=== PATIENT | female | born 1935 | race Caucasian/White ===

== ENCOUNTER → 2016-04-12 16:33 | Outpatient (CLI) | payer MEDICARE, BC ==
[2014-08-11 07:15] VITALS: BMI 28.8
[~2016-04-12 16:33] MED LIST: ATIVAN0.5 MG PO; BAYER CHEWABLE81 MG PO; BENADRYL25 MG PO; BYSTOLIC20 MG PO; COZAAR100 MG PO; DULCOLAX10 MG/SUPP RC; HYDROCHLOROTHIA25 MG PO; HYZAAR 100-25 T1 TAB PO; K-DUR20 MEQ PO; LASIX20 MG PO; LOVENOX40 MG/0.4 SQ; METOPROLOL TAR100 MG PO; MIRALAX17 GM PO; NEXIUM40 MG PO; NORCO 10/325 TA1 TA1 PO; NORCO 5/325 TAB1 TA1 PO; NORVASC10 MG PO; PLAVIX75 MG PO; PROTONIX40 MG PO; VYTORIN 10-20 M1 TAB PO; ZETIA10 MG PO; ZOCOR20 MG PO; ZOFRAN4 MG PO
== END | disposition home or self-care (01) ==
LOC: D.MAMMO 03-27 08:00
DX: Z12.31 Encounter for screening mammogram for malignant neoplasm of breast (principal)

== ENCOUNTER → 2016-11-26 07:59 | Outpatient (CLI) | payer MEDICARE, BC ==
[2014-08-11 07:15] VITALS: BMI 28.8
[2016-11-26 08:19] LABS: BASOPHILS 0.7 % (0-2); EOSINOPHILS 5.3 % (0-7); HEMATOCRIT 41.7 % (36.0-48.0); HEMOGLOBIN 13.7 g/dL (12-16); LYMPHOCYTES 18.9 % (15-50); MCH 28.4 pg (26.0-34.0); MCHC 32.9 g/dL (31.0-37.0); MCV 86.3 fL (80.0-100.0); MEAN PLATELET VOLUME 9.7 fL (7.4-10.4); MONOCYTES 13.9 % (2-11); NEUTROPHILS 61.2 % (40-80); PLATELET COUNT 263 10x3/uL (130-400); RBC 4.83 10x6/uL (4.00-5.40); RDW 13.7 % (11.5-14.5); WBC 5.7 10x3/uL (4.8-10.8)
[2016-11-26 09:05] LABS: ANION GAP 12.6 mmol/L (8-16); CALCIUM 10.1 mg/dL (8.5-10.1); CARBON DIOXIDE 27.2 mmol/L (21.0-32.0); POTASSIUM - SERUM 3.8 mmol/L (3.5-5.1)
== END | disposition home or self-care (01) ==
LOC: D.LAB 07:59 → D.CT 08:30
PROVIDERS: Internal Medicine Gastroenterology
DX: R10.9 Unspecified abdominal pain (principal); K92.1 Melena; R19.7 Diarrhea, unspecified

== ENCOUNTER → 2017-02-04 10:19 | Outpatient (CLI) | payer MEDICARE, BC ==
[2014-08-11 07:15] VITALS: BMI 28.8
[2017-02-04 11:25] LABS: ALBUMIN 3.8 g/dL (3.4-5.0); BILIRUBIN - DIRECT 0.13 mg/dL (0.00-0.30); BILIRUBIN - INDIRECT 0.35 mg/dL (0.00-1.00); BILIRUBIN - TOTAL 0.48 mg/dL (0.2-1.3); PROTEIN - SERUM 7.4 g/dL (6.4-8.2)
== END | disposition home or self-care (01) ==
LOC: D.LAB 10:19
PROVIDERS: Internal Medicine Gastroenterology
DX: R10.9 Unspecified abdominal pain (principal); R19.7 Diarrhea, unspecified

== ENCOUNTER → 2017-02-12 09:43 | Outpatient (CLI) | payer MEDICARE, BC ==
[2014-08-11 07:15] VITALS: BMI 28.8
== END | disposition home or self-care (01) ==
LOC: D.CT 09:43
DX: R91.8 Other nonspecific abnormal finding of lung field (principal)

== ENCOUNTER → 2017-06-28 19:48 | Outpatient (CLI) | payer MEDICARE, BC ==
[2014-08-11 07:15] VITALS: BMI 28.8
== END | disposition home or self-care (01) ==
LOC: D.MAMMO 15:15
DX: Z12.31 Encounter for screening mammogram for malignant neoplasm of breast (principal)

== ENCOUNTER → 2017-07-18 17:30 | Outpatient (CLI) | payer MEDICARE, BC ==
[2014-08-11 07:15] VITALS: BMI 28.8
== END | disposition home or self-care (01) ==
LOC: D.MAMMO 13:30
DX: R92.8 Other abnormal and inconclusive findings on diagnostic imaging of breast (principal)

== ENCOUNTER 2017-08-27 14:07 | Inpatient (IN) | payer MEDICARE, BC ==
[~2017-08-27] VITALS: Ht 168.9 cm; Wt 82.4 kg
[2017-08-27] VITALS (9 sets, daily range): BP systolic 111–136; BP diastolic 68–84; BMI 29.4
--- NOTE | ~2017-08-27 | EC ---
PATIENT:RAPHAEL AGUIRRE DATE OF SERVICE: 08/27/17 SEX: F MEDICAL RECORD: [id number] DATE OF : 37 LOCATION:D.M2 D.212 AGE OF PATIENT: 81 ADMISSION DATE: 08/28/17 REFERRING PHYSICIAN: INTERPRETING PHYSICIAN: JOSE MCNAIR MD ECHOCARDIOGRAM REPORT ECHO CHARGES 4 ECHO COMPLETE Date: 08/28 CLINICAL DIAGNOSIS: DYSPNEA/ELEVATED PRO BNP ECHOCARDIOGRAPHIC MEASUREMENTS (adult normal given) AC root (d.<3.7cm) 2.9 cm LV Septum d (<1.2 cm> 1.6 cm Valve Excursion 1.9 cm LV Septum (systole) 2.4 cm Left Atria (s.<4.0cm> 3.9 cm LVPW d(<1.2cm) 1.6 cm RV (d.<2.3cm) 2.7 cm LVPW (sytole) 2.2 cm LV diastole(<5.6CM) 4.0 cm MV E-F(>70mm/sec) cm LV systole 1.9 cm LVOT Diameter 1.7 cm MV exc.(>10mm) cm Est.ejection fraction (50-75%) % DOPPLER: LVIT cm/sec A cm/sec E 88.0 cm/sec LA cm/sec RVSP 33.4 mmHg LVOT 132 cm/sec AOP1/2T m/s Asc. Ao 146 cm/sec RVOT 49.0 cm/sec RA cm/sec PA 91.0 cm/sec AV Gradient Peak 8.6 mmHg AV Mean 4.1 mmHg AV Area 2.2 cm MV Gradient Peak 4.2 mmHg MV Mean 1.8 mmHg MV Area cm COMMENTS: Manager Grocery: Poly FREDERICKOE Paperboard Boxes Estimator: 1 Dr. Mcnair TAPE# PACS Pericardial Effusion N DATE OF SERVICE: 08/28/2017 PROCEDURE: Echocardiogram. FINDINGS: 1. Left ventricular chamber size is within normal limits. Left ventricular systolic function is normal. Overall ejection fraction estimated at 60%. 2. Left atrium is within normal limits. Right atrium and right ventricle chamber sizes are [id number] dilated. 3. Valvular structures have normal structure and motion. ECHOCARDIOGRAM REPORT [id number] RAPHAEL AGUIRRE 4. Doppler interrogation reveals moderate mitral regurgitation, moderate tricuspid regurgitation, no other valvular insufficiency or stenosis. Pulmonary systolic pressure is normal estimated 33 mmHg. 5. No evidence of pericardial effusion or left ventricular thrombus. TRANSINT:[id number] Voice Confirmation ID: [id number] DOCUMENT ID: [id number] JOSE MCNAIR MD at 1705 CC: [id number] DICTATION DATE: 08/28/17 1250 WOUND CARE RN: 08/28/17 1303 ADM IN [facility] [address] [place] [address]
--- NOTE | ~2017-08-27 | CN ---
PATIENT NAME:RAPHAEL AGUIRRE MEDICAL RECORD: [id number] : 37 LOCATION:D. D.2123 ADMIT DATE: 08/28/17 ACCOUNT: [id number] CONSULTING PHYSICIAN: JOSE NOBLE MD REFERRING PHYSICIAN: SIVA ACUÑA MD DATE OF CONSULTATION: 08/28/2017 Cardiology Consult DIAGNOSES: 1. Atrial fibrillation, new onset. 2. Shortness of breath, dyspnea on exertion. 3. Hypertension. 4. Valvular heart disease, mitral regurgitation. HISTORY OF PRESENT ILLNESS: Mrs. Aguirre is status post mastectomy at 4 days ago. She presents with shortness of breath, found to have atrial fibrillation. She has a history of atrial fibrillation, has been cardioverted in the past. She has been maintained sinus rhythm on only a beta quinn - Bystolic. She is now on a Cardizem drip for rate control, but she is still in atrial fibrillation. PHYSICAL EXAMINATION: GENERAL APPEARANCE: Well-nourished, well-developed, appears stated age. Level of distress, comfortable. PSYCHIATRIC: Mental status, alert, normal affect. Orientation, oriented to time, place and person. EYES: Lids and conjunctiva, noninjected. No discharge, no pallor. ENT: Lips, teeth, gums, normal dentition. Oropharynx, no cyanosis, no pallor. NECK: Carotid arteries, bilateral normal upstroke, no bruits, no thrills. JUGULAR VEINS: No jugular venous pressure or distention. CERVICAL LYMPH NODES: Nontender, nonenlarged. THYROID: Not enlarged. Nontender. No nodules. LUNGS: Respiratory effort, unlabored. CHEST: Normal curvature. No thoracic deformity. No chest wall tenderness. Percussion, resonant. Auscultation, clear. No wheezes, no rales, no rhonchi. CARDIOVASCULAR: Heart rate is irregularly irregular. EXTREMITIES: No cyanosis, no edema. Peripheral pulses, full and equal in all extremities, except as noted. No bruits appreciated. ABDOMEN: Soft, nondistended. Normal aorta. No bruit. Nontender. No masses. Liver, nontender, no hepatomegaly. Spleen, nontender, no splenomegaly. MUSCULOSKELETAL: No joint tenderness. No joint swelling. No erythema. NEUROLOGICAL: Normal gait, normal strength, normal tone. SKIN: Warm and dry. OVERALL IMPRESSION: We will discontinue her diltiazem and place her on sotalol 80 mg b.i.d. as well as start her on Eliquis. If she is still in atrial fibrillation tomorrow, we will perform DC cardioversion. TRANSINT:[id number] Voice Confirmation ID: [id number] DOCUMENT ID: [id number] CONSULT REPORT [id number] RAPHAEL AGUIRRE, JOSE POTTER at 1705 CC: [id number] DICTATION DATE: 08/28/17 1537 METROPOLITAN EDITOR: 08/28/17 1605 ADM IN [place] [id number] [place] [id number]
[2017-08-27 14:34] LABS: BASOPHILS 0.6 % (0-2); HEMATOCRIT 41.4 % (36.0-48.0); IMMATURE GRANULOCYTES 0.1 % (0-5); MCH 28.7 pg (26.0-34.0); MCHC 33.8 g/dL (31.0-37.0); MEAN PLATELET VOLUME 9.9 fL (7.4-10.4); MONOCYTES 15.6 % (2-11); NEUTROPHILS 62.7 % (40-80); PLATELET COUNT 303 10x3/uL (130-400); RBC 4.87 10x6/uL (4.00-5.40); RDW 14.1 % (11.5-14.5); WBC 7.9 10x3/uL (4.8-10.8)
[2017-08-27 14:42] LABS: INR 1.02 (0.85-1.17)
[2017-08-27 14:54] LABS: ALBUMIN 3.7 g/dL (3.4-5.0); ALKALINE PHOSPHATASE 64 U/L (46-116); ALT (SGPT) 25 U/L (10-68); CALC OSMOLALITY 283 mosm/kg (275-300); CALCIUM 10.6 mg/dL (8.5-10.1); CARBON DIOXIDE 27.4 mmol/L (21.0-32.0); CHLORIDE - SERUM 101 mmol/L (98-107); CREATININE - SERUM 1.1 mg/dL (0.6-1.3); GLUCOSE 127 mg/dL (74-106); POTASSIUM - SERUM 3.4 mmol/L (3.5-5.1); PROTEIN - SERUM 8.1 g/dL (6.4-8.2); SODIUM 139 mmol/L (136-145); UREA NITROGEN 24 mg/dL (7-18); eGFR NON AFRICAN AMERICAN 51 mL/min (90-120)
[2017-08-27 15:06] LABS: CKMB 0.6 U/L (0.0-3.6); CREATINE KINASE 48 UL (21-215); PRO BNP 4259 pg/mL (0-450)
[2017-08-27 16:49] LABS: APPEARANCE CLEAR (CLEAR); BILIRUBIN NEGATIVE (NEGATIVE); COLOR YELLOW (YELLOW); GLUCOSE NEGATIVE (NEGATIVE); KETONE NEGATIVE (NEGATIVE); NITRITE NEGATIVE (NEGATIVE); PROTEIN NEGATIVE (NEGATIVE); UROBILINOGEN NORMAL (NORMAL)
[2017-08-28] VITALS (7 sets, daily range): BP systolic 103–125; BP diastolic 60–80; Ht 168.9 cm; Wt 82.4 kg
[2017-08-28 05:55] LABS: BASOPHILS 0.5 % (0-2); EOSINOPHILS 3.8 % (0-7); HEMATOCRIT 39.8 % (36.0-48.0); HEMOGLOBIN 13.2 g/dL (12-16); IMMATURE GRANULOCYTES 0.2 % (0-5); MCH 27.8 pg (26.0-34.0); MCHC 33.2 g/dL (31.0-37.0); MEAN PLATELET VOLUME 10.2 fL (7.4-10.4); MONOCYTES 15.3 % (2-11); NEUTROPHILS 65.2 % (40-80); PLATELET COUNT 290 10x3/uL (130-400); RBC 4.74 10x6/uL (4.00-5.40); RDW 14.1 % (11.5-14.5); WBC 6.4 10x3/uL (4.8-10.8)
[2017-08-28 06:16] LABS: ANION GAP 15.7 mmol/L (8-16); CALCIUM 10.6 mg/dL (8.5-10.1); CARBON DIOXIDE 28.4 mmol/L (21.0-32.0); POTASSIUM - SERUM 3.1 mmol/L (3.5-5.1)
[2017-08-29 04:56] VITALS: BP 120/66
[2017-08-29 05:10] LABS: BASOPHILS 0.4 % (0-2); EOSINOPHILS 1.9 % (0-7); HEMATOCRIT 39.9 % (36.0-48.0); HEMOGLOBIN 13.2 g/dL (12-16); IMMATURE GRANULOCYTES 0.1 % (0-5); LYMPHOCYTES 11.6 % (15-50); MCH 27.8 pg (26.0-34.0); MCHC 33.1 g/dL (31.0-37.0); MEAN PLATELET VOLUME 9.7 fL (7.4-10.4); MONOCYTES 14.8 % (2-11); NEUTROPHILS 71.2 % (40-80); PLATELET COUNT 292 10x3/uL (130-400); RBC 4.75 10x6/uL (4.00-5.40); RDW 14.2 % (11.5-14.5)
[2017-08-29 05:33] LABS: WBC 8.5 10x3/uL (4.8-10.8)
[2017-08-29 05:52] LABS: ALBUMIN 3.1 g/dL (3.4-5.0); BILIRUBIN - TOTAL 0.7 mg/dL (0.2-1.3); CARBON DIOXIDE 30.3 mmol/L (21.0-32.0)
[2017-08-29 05:54] LABS: ANION GAP 10.3 mmol/L (8-16); CREATININE - SERUM 1.3 mg/dL (0.6-1.3); POTASSIUM - SERUM 3.6 mmol/L (3.5-5.1)
[2017-08-29 08:40] VITALS: BP 131/66
[2017-08-29] MEDS ORDERED: BETAPACE 80 MG80 MG PO (13:04)
== END 2017-08-29 14:24 | disposition home or self-care (01) | DRG 310 ==
LOC: D.ER 14:07 → OBSVTIME 19:25 → D.MS 19:25 → D.M2 19:25 → D.EDHOLD 19:25 → D.MS 19:53 → D.M2 08-28 12:56
PROVIDERS: Family Medicine
DX: I48.91 Unspecified atrial fibrillation (principal); I10 Essential (primary) hypertension; I25.10 Atherosclerotic heart disease of native coronary artery without angina pectoris; Z95.5 Presence of coronary angioplasty implant and graft; Z95.1 Presence of aortocoronary bypass graft; K21.9 Gastro-esophageal reflux disease without esophagitis; I34.0 Nonrheumatic mitral (valve) insufficiency; Z87.891 Personal history of nicotine dependence

== ENCOUNTER → 2018-03-19 17:45 | Outpatient (CLI) | payer MEDICARE, BC ==
[2017-08-28 14:54] VITALS: BMI 29.4
[~2018-03-19 17:45] MED LIST changes: +BETAPACE 80 MG80 MG PO
[2018-03-19 20:00] LABS: BASOPHILS 0.7 % (0-2); EOSINOPHILS 4.9 % (0-7); HEMATOCRIT 41.5 % (36.0-48.0); HEMOGLOBIN 13.6 g/dL (12-16); IMMATURE GRANULOCYTES 0.2 % (0-5); LYMPHOCYTES 17.6 % (15-50); MCH 27.8 pg (26.0-34.0); MCHC 32.8 g/dL (31.0-37.0); MCV 84.7 fL (80.0-100.0); MEAN PLATELET VOLUME 10.3 fL (7.4-10.4); MONOCYTES 9.2 % (2-11); NEUTROPHILS 67.4 % (40-80); PLATELET COUNT 347 10x3/uL (130-400); RDW 13.8 % (11.5-14.5); WBC 5.8 10x3/uL (4.8-10.8)
== END | disposition home or self-care (01) ==
LOC: D.LABREF 17:45
PROVIDERS: Nurse Practitioner Adult Health
DX: I48.91 Unspecified atrial fibrillation (principal); I25.10 Atherosclerotic heart disease of native coronary artery without angina pectoris

== ENCOUNTER 2018-06-11 19:41 | Emergency (ER) | payer MEDICARE, BC ==
[~2018-06-11] VITALS: Ht 168.9 cm; Wt 79.5 kg
[2018-06-11 20:06] VITALS: Ht 168.9 cm; Wt 79.5 kg
[2018-06-11] MEDS ORDERED: LEXAPRO10 MG PO (20:09)
[2018-06-11] MEDS ORDERED: PROTONIX20 MG PO (20:09)
[2018-06-11] MEDS ORDERED: ELIQUIS5 MG PO (20:10)
[2018-06-11] MEDS ORDERED: LISINOPRIL-HCT1 EAC7 PO (20:10)
[2018-06-11] MEDS ORDERED: NORVASC5 MG PO (20:10)
[2018-06-11 20:43] LABS: BASOPHILS 0.6 % (0-2); EOSINOPHILS 6.1 % (0-7); HEMATOCRIT 38.3 % (36.0-48.0); HEMOGLOBIN 12.4 g/dL (12-16); LYMPHOCYTES 18.2 % (15-50); MCHC 32.4 g/dL (31.0-37.0); MCV 83.3 fL (80.0-100.0); MONOCYTES 16.4 % (2-11); NEUTROPHILS 58.7 % (40-80); PLATELET COUNT 304 10x3/uL (130-400); RDW 14.6 % (11.5-14.5); WBC 6.8 10x3/uL (4.8-10.8)
[2018-06-11 20:59] LABS: ALBUMIN 3.4 g/dL (3.4-5.0); ALKALINE PHOSPHATASE 61 U/L (46-116); ALT (SGPT) 22 U/L (10-68); BILIRUBIN - TOTAL 0.32 mg/dL (0.2-1.3); CALC OSMOLALITY 280 mosm/kg (275-300); CARBON DIOXIDE 27.4 mmol/L (21.0-32.0); CHLORIDE - SERUM 99 mmol/L (98-107); CREATININE - SERUM 1.2 mg/dL (0.6-1.3); GLUCOSE 135 mg/dL (74-106); POTASSIUM - SERUM 3.2 mmol/L (3.5-5.1); PROTEIN - SERUM 7.8 g/dL (6.4-8.2); SODIUM 137 mmol/L (136-145); UREA NITROGEN 26 mg/dL (7-18); eGFR NON AFRICAN AMERICAN 46 mL/min (90-120)
[2018-06-11 21:04] LABS: APTT 29.8 SECONDS (22.8-39.4); INR 1.18 (0.85-1.17); PROTIME 14.4 SECONDS (11.6-15.0)
[2018-06-11 21:10] LABS: CKMB 1.1 U/L (0.0-3.6); CREATINE KINASE 54 UL (21-215); MAGNESIUM - SERUM 1.8 mg/dL (1.8-2.4)
[2018-06-11 21:11] LABS: TROPONIN-I < 0.017 ng/mL (0.000-0.060)
[2018-06-11] MEDS ORDERED: KLONOPIN0.5 MG PO (21:52)
[2018-06-11 22:23] VITALS: BP 159/88
== END 2018-06-11 22:23 | disposition home or self-care (01) ==
LOC: D.ER 19:41
PROVIDERS: Emergency Medicine
DX: I10 Essential (primary) hypertension (principal)

== ENCOUNTER 2018-12-03 08:51 | Inpatient (IN) | payer MEDICARE, BC ==
[~2018-12-03] VITALS: Ht 168.9 cm; Wt 81.6 kg
[~2018-12-03 08:51] MED LIST changes: +ELIQUIS5 MG PO; +KLONOPIN0.5 MG PO; +LEXAPRO10 MG PO; +LISINOPRIL-HCT1 EAC7 PO; +NORVASC5 MG PO; +PROTONIX20 MG PO
[2018-12-03] MEDS ORDERED: METOPROLOL TART50 MG PO (09:06)
[2018-12-03] MEDS ORDERED: ZYRTEC10 MG PO (09:06)
[2018-12-03 09:30] VITALS: BP 183/85
[2018-12-03 09:54] LABS: APTT 28.9 SECONDS (22.8-39.4); INR 1.11 (0.85-1.17); PROTIME 13.8 SECONDS (11.6-15.0)
[2018-12-03 09:56] LABS: D-DIMER-QUANTITATIVE 0.52 ug/mLFEU (0.20-0.54)
[2018-12-03 09:57] LABS: ALBUMIN 3.5 g/dL (3.4-5.0); ALKALINE PHOSPHATASE 66 U/L (46-116); ALT (SGPT) 30 U/L (10-68); BILIRUBIN - TOTAL 0.44 mg/dL (0.2-1.3); CALC OSMOLALITY 282 mosm/kg (275-300); CHLORIDE - SERUM 103 mmol/L (98-107); GLUCOSE 131 mg/dL (74-106); PROTEIN - SERUM 7.7 g/dL (6.4-8.2); SODIUM 139 mmol/L (136-145); UREA NITROGEN 20 mg/dL (7-18); eGFR NON AFRICAN AMERICAN 56 mL/min (90-120)
[2018-12-03 10:08] LABS: CKMB 0.8 U/L (0.0-3.6); CREATINE KINASE 70 UL (21-215); PRO BNP 675 pg/mL (0-450)
[2018-12-03 10:09] LABS: HEMATOCRIT 37.4 % (36.0-48.0); HEMOGLOBIN 11.8 g/dL (12-16); LYMPHOCYTES 10.5 % (15-50); MCH 25.5 pg (26.0-34.0); MCHC 31.6 g/dL (31.0-37.0); MCV 80.8 fL (80.0-100.0); MEAN PLATELET VOLUME 9.8 fL (7.4-10.4); NEUTROPHILS 77.2 % (40-80); PLATELET COUNT 281 10x3/uL (130-400); RBC 4.63 10x6/uL (4.00-5.40); RDW 14.6 % (11.5-14.5); WBC 5.2 10x3/uL (4.8-10.8)
[2018-12-03 10:10] LABS: POTASSIUM - SERUM 4.5 mmol/L (3.5-5.1); TROPONIN-I < 0.017 ng/mL (0.000-0.060)
--- NOTE | 2018-12-03 10:45 | NUR ---
C/O NAUSEA. DR ANTONY NOTIFIED AND MED PER ORDERS
[2018-12-03 10:54] VITALS: BP 164/86
--- NOTE | 2018-12-03 11:15 | NUR ---
PT HAS RIGHT MASECTOMY. RAC SL D/C'D INTACT AND NEW IV SITED
--- NOTE | 2018-12-03 11:18 | NUR ---
NAUSEA RESOLVED. RESTING IN BED, NO C/O. EXPL POC: AWAITING ROOM ASSIGNMENT VERB UNDER
--- NOTE | 2018-12-03 11:25 | NUR ---
REPORT CALLED TO DARNELL RUSS BY SBAR FORMAT
[2018-12-03 11:29] VITALS: BP 158/84
--- NOTE | 2018-12-03 11:50 | NUR ---
TRANSPORTED TO ROOM #1131, CONDITION STABLE. AZITHROMYCIN INFUSING UPON TX
[2018-12-03 12:00] VITALS: BP 134/70
--- NOTE | 2018-12-03 12:00 | NUR ---
RECEIVED PT TO ROOM 2130 VIA STRETCHER, PT WAS ABLE TO AMBULATE FROM STRETCHER TO BED WITH STEADY GATE. PT A/O X4, RESP EVEN AND NONLABORED ON RA. LT AC INFUSING ZITHROMAX AT THIS TIME. ORIENTED PT TO ROOM AND CALL LIGHT. WILL ASSESS PT AND START PLAN OF CARE.
[2018-12-03] MEDS ORDERED: BETAPACE 120 M120 MG PO (12:03)
[2018-12-03] MEDS ORDERED: LEXAPRO10 MG PO (12:21)
[2018-12-03 16:00] VITALS: BP 190/61
--- NOTE | 2018-12-03 19:00 | NUR ---
EVENING ROUNDS COMPLETE, PT LAYING IN BED. NO SIGNS OF DISTRESS, AAOX4. PT DENIES ANY PAIN AT THIS TIME. CL IN REACH, BED IN LOWEST POSITION. CONT WITH POC.
[2018-12-03 20:13] VITALS: BP 140/67
[2018-12-04] VITALS: BP 131/61
[2018-12-04 04:00] VITALS: BP 139/70
[2018-12-04 04:33] LABS: EOSINOPHILS 7.3 % (0-7); HEMATOCRIT 35.6 % (36.0-48.0); HEMOGLOBIN 11.4 g/dL (12-16); IMMATURE GRANULOCYTES 0.2 % (0-5); LYMPHOCYTES 18.9 % (15-50); MCH 25.3 pg (26.0-34.0); MCV 78.9 fL (80.0-100.0); MEAN PLATELET VOLUME 9.4 fL (7.4-10.4); MONOCYTES 17.7 % (2-11); NEUTROPHILS 54.9 % (40-80); PLATELET COUNT 265 10x3/uL (130-400); RBC 4.51 10x6/uL (4.00-5.40); WBC 4.8 10x3/uL (4.8-10.8)
[2018-12-04 04:58] LABS: CALC OSMOLALITY 283 mosm/kg (275-300); CALCIUM 9.8 mg/dL (8.5-10.1); CARBON DIOXIDE 31.4 mmol/L (21.0-32.0); CHLORIDE - SERUM 104 mmol/L (98-107); GLUCOSE 96 mg/dL (74-106); POTASSIUM - SERUM 4.3 mmol/L (3.5-5.1); SODIUM 142 mmol/L (136-145); UREA NITROGEN 15 mg/dL (7-18); eGFR NON AFRICAN AMERICAN 56 mL/min (90-120)
[2018-12-04 05:02] LABS: TROPONIN-I < 0.017 ng/mL (0.000-0.060)
--- NOTE | 2018-12-04 07:11 | NUR ---
REPORT RECEIVED. WILL CONTINUE WITH POC. PT CURRENTLY RESTING ON LEFT SIDE. CALL LIGHT W/I REACH. RR EVEN AND UNLABORED ON 2L 02. L.AC PIV IS SALINE LOCKED. NO S/S OF DISTRESS NOTED. PT DENIES ANY NEEDS. WILL CTM.
[2018-12-04 08:00] VITALS: BP 152/81
[2018-12-04 12:00] VITALS: BP 152/82
--- NOTE | 2018-12-04 12:29 | NUR ---
PREVIOUS PIV INFILTRATED. REMOVED OLD PIV WITH CATHETER TIP FULLY INTACT. ATTEMPTED TO START A NEW PIV BUT WAS UNSUCCESSFUL AFTER TWO ATTEMPTS. NOTIFIED CHARGE NURSE WHO ALSO ATTEMPTED TWO MORE TIMES. ATTEMPTED TO CALL ICU AND ER BUT NO ONE WAS AVAILABLE. WILL CTM.
[2018-12-04 12:55] VITALS: Ht 168.9 cm; Wt 81.6 kg
--- NOTE | 2018-12-04 14:01 | NUR ---
I have reviewed this patient and I concur with the Shift Assessment completed by the Licensed Practical Nurse today this shift.
--- NOTE | 2018-12-04 14:04 | NUR ---
OR NURSE CAME AND STARTED NEW PIV TO THE LEFT WRIST 22GA X1 ATTEMPT. BEGAN INFUSION OF ABX. WILL CTM.
[2018-12-04 16:18] VITALS: BP 143/73
--- NOTE | 2018-12-04 19:27 | NUR ---
EVENING ROUNDS COMPLETED. VSS, AAOX4, NO S/S OF DISTRESS. PT ONLY C/O FEELING CONSTIPATED. STATES "I WILL TRY TO GO, AND IF IT DOES NOT COME OUT, I MIGHT NEED SOMETHING TO HELP ME GO." PT DENIES ANY FURTHER NEEDS AT THIS TIME. WILL CPOC. CL WITHIN REACH.
[2018-12-04 20:00] VITALS: BP 160/83
--- NOTE | 2018-12-04 22:06 | NUR ---
CALLED AND NOTIFIED DR. AUSTIN ON-CALL FOR DR. ACUÑA ABOUT PT'S INCREASING BLOOD PRESSURE, WHICH HAS BEEN 164/57, 174,68, 170/[address] AUSTIN ORDERED 0.1MG CLONIDINE PRN FOR SBP >170. RECHECKED BP BEFORE GIVEN. SBP WAS 169 PT STATES TO GO AHEAD AND GIVE IT BECAUSE SHE THINKS THAT MIGHT BE THE CAUSE OF HER HEADACHE. CLONIDE GIVEN. PRN MILK OF MAGNESIA ALSO GIVEN PER PROVIDERS ORDERS. PT VOICED THANKS. HR. 68 AT THIS TIME. PT ON TELE. WILL CTM. CL WITHIN REACH.
[2018-12-05] VITALS: BP 139/80
[2018-12-05 04:00] VITALS: BP 142/81
[2018-12-05 06:39] LABS: BASOPHILS 0.9 % (0-2); EOSINOPHILS 6.2 % (0-7); HEMATOCRIT 33.7 % (36.0-48.0); HEMOGLOBIN 10.7 g/dL (12-16); IMMATURE GRANULOCYTES 0.2 % (0-5); LYMPHOCYTES 17.8 % (15-50); MCH 25.1 pg (26.0-34.0); MCHC 31.8 g/dL (31.0-37.0); MCV 78.9 fL (80.0-100.0); MEAN PLATELET VOLUME 9.6 fL (7.4-10.4); MONOCYTES 19.7 % (2-11); NEUTROPHILS 55.2 % (40-80); PLATELET COUNT 247 10x3/uL (130-400); RBC 4.27 10x6/uL (4.00-5.40); WBC 5.9 10x3/uL (4.8-10.8)
[2018-12-05 06:53] LABS: ANION GAP 10.1 mmol/L (8-16); CREATININE - SERUM 1.1 mg/dL (0.6-1.3); POTASSIUM - SERUM 4.1 mmol/L (3.5-5.1)
--- NOTE | 2018-12-05 07:15 | NUR ---
PT RESTING IN BED, SHIFT ASSESSMENT PERFORMED. CALL LIGHT WITHIN REACH. DENIES ANY NEEDS AT THIS TIME, WILL CONT TO FOLLOW POC
[2018-12-05 08:16] VITALS: BP 160/83
[2018-12-05] MEDS ORDERED: CEFUROXIME500 MG PO (08:42)
--- NOTE | 2018-12-05 09:51 | MORECARE ---
CASE MANAGEMENT DISCHARGE SUMMARY PATIENT: RAPHAEL AGUIRRE UNIT: [id number] ADM DATE: 12/03/18 AGE: 83 : 36 SEX: F ROOM/BED: D.2131 AUTHOR: YAIR CALDERON PHYSICIAN: REFERRING PHYSICIAN: SIVA ACUÑA MD DATE OF SERVICE: 12/05/18 Discharge Plan Patient Name: RAPHAEL AGUIRRE Facility: [facility]:[place] : 1935 Planned Disposition: Home Anticipated Discharge Date: 12/05/18 Discharge Date: Expected LOS: 2 Initial Reviewer: [email or web address] Initial Review Date: 12/05/2018 Generated: 12/05/18 10:51 am Coverage Notice Reviewer: [email or web address] - Arie Vergara Notice Issued Date-Time: 12/05/2018 9:40 Notice Type: IM Discharge Notice Notice Delivered To: Patient Relationship to Patient: Caramel Coloring Operator Name: Delivery Method: HAND - Hand Delivered Ivet Days: Prior Verbal Notification: Recipient Understood Notice: Yes Recipient Signature: Yes Med Rec Note Co-signed by Attending: Coverage Notice Comment: Patient Name: RAPHAEL AGUIRRE Page [phone] at 0951 All edits/amendments must be made on the electronic document DICTATION DATE: 12/05/18950 RELATIONSHIP MANAGER: ISHMAEL 12/05/18950 RPT#: [id number] DC DATE: STATUS: ADM IN [place] [address] [place] [address] END OF REPORT
--- NOTE | 2018-12-05 09:59 | MORECARE ---
CASE MANAGEMENT DISCHARGE SUMMARY PATIENT: RAPHAEL AGUIRRE UNIT: [id number] ADM DATE: 12/03/18 AGE: 83 : 36 SEX: F ROOM/BED: D.2131 AUTHOR: YUMIKO,DOC PHYSICIAN: REFERRING PHYSICIAN: SIVA ACUÑA MD DATE OF SERVICE: 12/05/18 Discharge Plan Patient Name: RAPHAEL AGUIRRE Facility: [facility]:[place] : 1935 Planned Disposition: Home Anticipated Discharge Date: 12/05/18 Discharge Date: Expected LOS: 2 Initial Reviewer: [email or web address] Initial Review Date: 12/05/2018 Generated: 12/05/18 10:59 am Comments DCP- Discharge Planning Updated by [email or web address]: Arie Vergara on 12/05/18 8:[address] Patient Name: RAPHAEL AGUIRRE Admission Status: ER Accout number: [id number] Admission Date: 12-03-2018 : 1935 Admission Diagnosis:LOBAR PNEUMONIA, UNSPECIFIED ORGANISM Attending: SIVA ACUÑA Current LOS: 2 Anticipated DC Date: 12-05-2018 Planned Disposition: Home Primary Insurance: MEDICARE A & B Discharge Planning Comments: CM RECEIVED DISCHARGE ORDER, MET WITH PT IN ROOM TO DISCUSS DISCHARGE PLANNING AND NEEDS. PT REPORTS LIVING AT HOME INDEPENDENTLY WITH HER SPOUSE. PT HAS NO MEDICAL EQUIPMENT AND NO OUTSIDE SERVICES ASSISTING IN THE HOME. CM DISCUSSED AVAILABILITY OF HOME HEALTH, REHAB SERVICES AND MEDICAL EQUIPMENT. PT DENIES DISCHARGE NEEDS, REPORTS HER SPOUSE WILL PICK HER UP FOR DISCHARGE HOME. IMPORTANT MESSAGE FROM MEDICARE PROVIDED AND EXPLAINED. Cellophane Bag Machine Operator: Arie Vergara DCPIA - Discharge Planning Initial Assessment Updated by [email or web address]: Arie Vergara on 12/05/18 9:52 am * Is the patient Alert and Oriented? Yes * How many steps to enter\exit or inside your home? * PCP DR. ACUÑA * Pharmacy [facility] [address] * Preadmission Environment Home with Family * ADLs Independent * Equipment None * Other Equipment NO MEDICAL EQUIPMENT PROVIIDER PREFERENCE * List name and contact numbers for known caregivers / representatives who currently or will assist patient after discharge: CHRISTEL AGUIRRE, SPOUSE, * Verbal permission to speak to the caregivers and representatives has been obtained from the patient. N/A * Community resources currently utilized None * Please name any agencies selected above. NONE * Additional services required to return to the preadmission environment? No * Can the patient safely return to the preadmission environment? Yes * Has this patient been hospitalized within the prior 30 days at any hospital? No Coverage Notice Reviewer: [email or web address] Sheree Vergara Notice Issued Date-Time: 12/05/2018 9:40 Notice Type: IM Discharge Notice Notice Delivered To: Patient Relationship to Patient: Video Game Maker Name: Delivery Method: HAND - Hand Delivered Ivet Days: Prior Verbal Notification: Recipient Understood Notice: Yes Recipient Signature: Yes Med Rec Note Co-signed by Attending: Coverage Notice Comment: Last DP export: 12/05/18 8:51 a Patient Name: RAPHAEL AGUIRRE Page [phone] at 0959 All edits/amendments must be made on the electronic document DICTATION DATE: 12/05/18958 COAL LOADER: ISHMAEL 12/05/18 0959 RPT#: [id number] DC DATE: STATUS: ADM IN [facility] [address] [place] [address] END OF REPORT
--- NOTE | 2018-12-05 10:42 | NUR ---
DISCHARGE INSTRUCTIONS REVIEWED WITH PT AND ALL QUESTIONS ANSWERED. PIV REMOVED WITH CATHETER TIP INTACT. PT WAITING FOR RIDE
--- NOTE | 2018-12-05 10:52 | NUR ---
PT ASSISTED TO THE FRONT OF THE HOSPITAL VIA WHEELCHAIR.
== END 2018-12-05 10:52 | disposition home or self-care (01) | DRG 869 ==
LOC: D.ER 08:51 → D.M2 11:10
PROVIDERS: Emergency Medicine; ADMIT Family Medicine; ATTEND Family Medicine
DX: B99.9 Unspecified infectious disease (principal); I10 Essential (primary) hypertension; R11.2 Nausea with vomiting, unspecified; R61 Generalized hyperhidrosis; M79.10 Myalgia, unspecified site; I25.10 Atherosclerotic heart disease of native coronary artery without angina pectoris; R07.9 Chest pain, unspecified; R51 Headache; I48.0 Paroxysmal atrial fibrillation; Z87.891 Personal history of nicotine dependence; Z85.3 Personal history of malignant neoplasm of breast

== ENCOUNTER 2019-05-16 13:45 | Inpatient (IN) | payer MEDICARE, BC ==
[~2019-05-16] VITALS: Ht 168.9 cm; Wt 86.1 kg
[2019-05-16] VITALS (25 sets, daily range): BP systolic 104–219; BP diastolic 54–100; Ht 168.9 cm; Wt 86.1 kg
[~2019-05-16 13:45] MED LIST changes: +BETAPACE 120 M120 MG PO; +CEFUROXIME500 MG PO; +METOPROLOL TART50 MG PO; +ZYRTEC10 MG PO
[2019-05-16 14:50] LABS: BASOPHILS 0.6 % (0-2); EOSINOPHILS 5.4 % (0-7); HEMATOCRIT 37.3 % (36.0-48.0); HEMOGLOBIN 12.2 g/dL (12-16); IMMATURE GRANULOCYTES 0.2 % (0-5); LYMPHOCYTES 19.4 % (15-50); MCH 26.3 pg (26.0-34.0); MCHC 32.7 g/dL (31.0-37.0); MCV 80.6 fL (80.0-100.0); MEAN PLATELET VOLUME 9.3 fL (7.4-10.4); MONOCYTES 13.4 % (2-11); PLATELET COUNT 272 10x3/uL (130-400); RBC 4.63 10x6/uL (4.00-5.40); RDW 14.5 % (11.5-14.5); WBC 5.2 10x3/uL (4.8-10.8)
[2019-05-16 14:59] LABS: CALC OSMOLALITY 280 mosm/kg (275-300); CALCIUM 10.3 mg/dL (8.5-10.1); CARBON DIOXIDE 27.6 mmol/L (21.0-32.0); CHLORIDE - SERUM 101 mmol/L (98-107); CREATININE - SERUM 0.9 mg/dL (0.6-1.3); GLUCOSE 107 mg/dL (74-106); POTASSIUM - SERUM 3.3 mmol/L (3.5-5.1); SODIUM 139 mmol/L (136-145); UREA NITROGEN 22 mg/dL (7-18); eGFR NON AFRICAN AMERICAN 63 mL/min (90-120)
[2019-05-16 15:15] LABS: ALBUMIN 3.4 g/dL (3.4-5.0); ALKALINE PHOSPHATASE 75 U/L (30-120); ALT (SGPT) 20 U/L (10-68); BILIRUBIN - TOTAL 0.53 mg/dL (0.2-1.3); CKMB 0.7 U/L (0.0-3.6); CREATINE KINASE 47 UL (21-215); PROTEIN - SERUM 7.3 g/dL (6.4-8.2)
[2019-05-16 15:16] LABS: TROPONIN-I < 0.017 ng/mL (0.000-0.060)
[2019-05-16] MEDS ORDERED: CATAPRES0.1 MG PO (15:27)
[2019-05-16] MEDS ORDERED: LISINOPRIL-HCT1 EAC7 PO (15:27)
--- NOTE | 2019-05-16 16:12 | NUR ---
INCREASED CARDENE BY 2.5 MG/HR PER DR ANTONY.
--- NOTE | 2019-05-16 16:25 | NUR ---
CARDENE DRIP TURNED OFF DUE TO BLOOD PRESSURE.
--- NOTE | 2019-05-16 16:33 | NUR ---
CARDENE DRIP STARTED BACK AT 5MG/HR.
--- NOTE | 2019-05-16 17:40 | NUR ---
PT ARRIVED TO ICU FROM ER. PT ALERT AND ANSWERS ALL QUESTIONS. NO SIGNS OF DISTRESS NOTED. VSS AND WNL. BED ALARM ON. CALL LIGHT WITHIN REACH. WILL CONT TO FOLLOW POC
--- NOTE | 2019-05-16 19:00 | NUR ---
Patient assessment completed at this time, no changes noted from nurse report. Patient awake alert oriented x3, vital signs stable. Patient complains of some left-sided shoulder and chest pain. Patient states that she fell 2 to 3 days ago and landed on her left side. Respirations are even and nonlabored, will monitor for changes.
--- NOTE | 2019-05-16 20:16 | NUR ---
[facility] ABOUT PATIENTS HR 50-59 ON CM SINUS ABIDA, VERIFYING IF 2100 DOSE OF BETAPACE TO BE GIVEN
--- NOTE | 2019-05-16 20:31 | NUR ---
SPOKE WITH DR. AUSTIN AND ORDER TO HOLD THE DOSE OF SOTALOL TONIGHT WAS GIVEN.
--- NOTE | 2019-05-16 21:00 | NUR ---
Patient assisted up to the bedside commode at this time, clean-catch urine specimen was collected. Vital signs are stable continue to titrate down the Cardene drip. Patient states he have any distress or discomfort at this time. No stress noted, will continue to monitor for changes.
[2019-05-16 21:35] LABS: BILIRUBIN NEGATIVE (NEGATIVE); GLUCOSE NEGATIVE (NEGATIVE); KETONE NEGATIVE (NEGATIVE); NITRITE NEGATIVE (NEGATIVE); UROBILINOGEN NORMAL (NORMAL)
--- NOTE | 2019-05-16 23:00 | NUR ---
Patient reassessment completed at this time, no changes noted from previous exam. Vital signs continue to be stable, will continue to monitor for changes.
[2019-05-17] VITALS (12 sets, daily range): BP systolic 96–164; BP diastolic 58–89
--- NOTE | 2019-05-17 01:00 | NUR ---
PATIENT RESTING WITH EYES CLOSED, RESPIRATIONS EVEN AND NONLABORED. VITAL SIGNS STABLE AT THIS TIME, NO DITRESS NOTED, WILL CONTINUE TO MONITOR FOR CHANGES
--- NOTE | 2019-05-17 03:00 | NUR ---
Patient reassessment complete at this time, no changes noted from previous exam. Vital signs continue to be stable, will continue to monitor for changes.
[2019-05-17 04:50] LABS: ANION GAP 10.8 mmol/L (8-16); CARBON DIOXIDE 29.9 mmol/L (21.0-32.0); CREATININE - SERUM 0.8 mg/dL (0.6-1.3); POTASSIUM - SERUM 3.7 mmol/L (3.5-5.1)
--- NOTE | 2019-05-17 05:00 | NUR ---
Patient resting with eyes closed, respirations even and unlabored. Patient wakes to name and is awake alert oriented at this time. Vital signs are stable, we will continue to monitor for changes.
[2019-05-17 05:03] LABS: BASOPHILS 0.8 % (0-2); EOSINOPHILS 5.5 % (0-7); HEMATOCRIT 36.6 % (36.0-48.0); IMMATURE GRANULOCYTES 0.2 % (0-5); LYMPHOCYTES 18.2 % (15-50); MCH 26.2 pg (26.0-34.0); MCHC 32.8 g/dL (31.0-37.0); MCV 79.9 fL (80.0-100.0); MEAN PLATELET VOLUME 9.8 fL (7.4-10.4); MONOCYTES 18.4 % (2-11); NEUTROPHILS 56.9 % (40-80); PLATELET COUNT 228 10x3/uL (130-400); RBC 4.58 10x6/uL (4.00-5.40); RDW 14.3 % (11.5-14.5); WBC 4.9 10x3/uL (4.8-10.8)
--- NOTE | 2019-05-17 07:45 | HP ---
PATIENT: RAPHAEL AGUIRRE MEDICAL RECORD: [id number] ACCOUNT: [id number] LOCATION:[facility] D.2309 : 37 ADMISSION DATE: 05/16/19 PCP: SIVA ACUÑA HISTORY AND PHYSICAL EXAMINATION REASON FOR ADMISSION: Confusion with elevated blood pressures. HISTORY OF PRESENT ILLNESS: The patient is an 83-year-old female with history of hypertension, paroxysmal atrial fibrillation and CAD. She had trouble with peripheral edema in the end of March of this year and cardiology discontinued her 5 mg amlodipine and switched her to Prinzide. Her edema improved but pressure began to increase. She was seen in our office by nurse practitioner 2 weeks ago and her Prinzide dose was doubled. Pressures are still running in 170-180 range and today she became more confused, been having some nighttime visual hallucinosis and slight headache. She presented to the Emergency Room today with these symptoms, a systolic blood pressure over 200. For this reason, Dr. Wheat started Cardene IV and she has had a nice response. Initial cardiac enzymes are negative. She denies chest pain. A CT head does not show evidence of infarct. She is now being admitted for IV Cardene therapy, ICU until stable. She denies any recent exertional chest pain, shortness of breath. She did have an echocardiogram, 11/2018, shows a normal EF 55%, moderate mitral regurg, mildly dilated right ventricle, moderate tricuspid regurgitation, mildly dilated right atrium, otherwise, unremarkable. PAST MEDICAL HISTORY: Paroxysmal atrial fibrillation, essential hypertension; carcinoma of the breast, post-right mastectomy; CAD post-CABG, and coronary artery stents, GERD, osteoarthritis, postmenopausal, posthysterectomy, chronic insomnia, history of diaphragmatic hernia without obstruction, degenerative lumbar disc disease, and anxiety. PAST SURGICAL HISTORY: She has had right mastectomy, CABG, coronary stents, appendectomy, hysterectomy, bilateral knee scopes, ORIF of the right ankle; cataract surgery, both eyes. ALLERGIES: DILAUDID CAUSING NAUSEA. FAMILY HISTORY: Parents with cardiovascular disease and a sibling with cardiovascular disease and cancer. She is a former smoker and . HOME MEDICATIONS: Lisinopril HCT 1 tab daily, metoprolol 50 mg a day, sotalol 120 mg b.i.d., clonidine 0.1 mg q.6 hours p.r.n. elevated blood pressure, which she has taken 3 prior to admission, aspirin 81 mg a day, Lexapro 10 mg a day, pantoprazole 20 mg p.o. daily, desonide 0.05% topical cream to rash twice daily as needed, ipratropium bromide 0.03% nasal spray 1 squirt each nostril b.i.d. for allergy, Flonase nasal spray daily, simvastatin 20 mg at bedtime, temazepam 15 mg at bedtime for sleep, cetirizine 10 mg daily for allergies, ferrous sulfate 325 mg a day, MiraLax 17 grams p.o. daily, Carafate 1 gram p.o. 4 times daily. REVIEW OF SYSTEMS: GENERAL: Mild fatigue recently and some confusion today. No fever. HEENT: She has had some visual hallucinations at night for the last several days, none during the day and she is not or hearing any voices. She has not had a headache or marked visual changes. HEENT: No sinus congestion or sore throat. HISTORY AND PHYSICAL [id number] RAPHAEL AGUIRRE RESPIRATORY: No SOB or cough. CARDIAC: No chest pain, palpitations, claudication. Has had peripheral edema, improved off of amlodipine. GASTROINTESTINAL: No recent change in bowel movements, dyspepsia, constipation. GENITOURINARY: Some mild stress incontinence. No dysuria. GYNECOLOGICAL: No vaginal bleeding. INTEGUMENTARY: No rash or itching. PSYCHIATRIC: Denies depressed mood. PHYSICAL EXAMINATION: VITAL SIGNS: Blood pressure is now down to 118/63 on Cardene, sats 90% on room air, respiratory rate 16, heart rate 68 and regular. GENERAL: Alert, fairly oriented. Her eyes are clear with lens implants both eyes. Sclerae are nonicteric. Oropharynx is unremarkable. NECK: Supple. CHEST: Clear. HEART: Regular rate and rhythm with a faint tricuspid regurg murmur appreciated. Right breast is absent. Chest wall was largely unremarkable. ABDOMEN: Soft, mildly obese, nontender. EXTREMITIES: A 1+ pretibial edema bilaterally to the knees. NEUROLOGIC: Oriented to person, place, and time. Cranial nerves intact. Gait was not tested. No obvious motor deficits are appreciated. LABORATORY DATA: CT of the head shows no acute changes. H&H is 12.2 and 37.3. Potassium is low at 3.3, BUN and creatinine are 22 and 0.9, glucose 107 nonfasting. Cardiac enzymes are negative. ProBNP is 1000. Urinalysis is pending. Chest x-ray, moderate size hiatal hernia with left basilar atelectasis. ASSESSMENT: 1. Accelerated hypertension with neurologic symptoms. 2. Coronary artery disease, clinically stable. 3. Mitral regurgitation, moderate. 4. Paroxysmal atrial fibrillation, currently in sinus rhythm with bradycardia. 5. History of breast cancer. PLAN: The patient will be admitted to the ICU on Cardene drip. Once blood pressure is stable, we will transition to low-dose amlodipine if she tolerates, cardiology will see as needed. TRANSINT:[id number] Voice Confirmation ID: [id number] DOCUMENT ID: [id number] SID AUSTIN MD at 0745 CC: [id number] DICTATION DATE: 05/16/191715 LOSS CONTROL MANAGER: 05/16/19 2244 ADM IN [place] [id number] [place] [address]
--- NOTE | 2019-05-17 07:54 | NUR ---
PT AWAKE IN CHAIR BESIDE BED AT THIS TIME. CONTINENT VOID NOTED TO BEDSIDE TOILET. PT PROVIDED OWN EVELIA CARE. PT ALERT AND ORIENTED. ALSO PER KYAW BRIGHT TO TRANSFER PT TO FLOOR AFTER CARDIOLOGY HAS SEEN PT. ALSO EKG ORDER RECIEVED. NOTED PT SINUS ABIDA PER EKG. VSS. WILL CONTINUE PLAN OF CARE.
--- NOTE | 2019-05-17 09:54 | NUR ---
PT C/O FEELING CONSTIPATED, ORDERS RECIEVED FROM DR AUSTIN.
--- NOTE | 2019-05-17 10:14 | NUR ---
SPOKE WITH PTS SON, EMERGENCY CONTACT INFORMATION RECIEVED. UPDATES PROVIDED. VSS. NO ACUTE DISTRESS NOTED. WILL CONTINUE PLAN OF CARE.
[2019-05-17 11:18] LABS: T4 THYROXIN - FREE 1.37 ng/dL (0.76-1.46); THYROID STIMULATING HORMONE 3.03 uIU/mL (0.36-3.74)
--- NOTE | 2019-05-17 12:35 | NUR ---
NOTED PT TO TRANSFER TO ROOM 2135. WILL CALL REPORT SHORTLY.
--- NOTE | 2019-05-17 12:45 | NUR ---
RECEIVED REPORT FROM SARAH. TO UNIT SOON.
--- NOTE | 2019-05-17 13:43 | NUR ---
PT ARRIVED AT 2135 AT THIS TIME. VSS. NO ACUTE DISTRESS NOTED. NO FURTHER ACTIONS.
--- NOTE | 2019-05-17 13:50 | NUR ---
PATIENT ARRIVED TO UNIT VIA WHEELCHAIR. NO DISTRESS. PATIENT ORIENTED TO ROOM. CALL LIGHT WITHIN REACH. NO DISTRESS. FRESH ICEWATER PROVIDED.
--- NOTE | 2019-05-17 14:32 | NUR ---
PATIENT RESTING IN BED, ATTENTION TOWARD TELEVISION. CALL LIGHT WITHIN REACH. NO DISTRESS.
--- NOTE | 2019-05-17 17:46 | NUR ---
RESTING IN BED WITH EYES CLOSED, NO DISTRESS. CALL LIGHT WITHIN REACH. PM MEAL CONSUMED. DENIES NEEDS.
--- NOTE | 2019-05-17 19:30 | NUR ---
RECEIVED REPORT, WILL ASSUME CARE OF PT, DENIES ANY NEEDS AT THIS TIME, BED IS LOW, SRX2, CALL LIGHT IN REACH, WILL CONTINUE PLAN OF CARE
[2019-05-18] VITALS: BP 126/69
[2019-05-18 04:00] VITALS: BP 178/83
--- NOTE | 2019-05-18 04:00 | NUR ---
I have reviewed this patient and I concur with the Shift Assessment completed by the Licensed Practical Nurse today this shift.
[2019-05-18 06:24] LABS: ANION GAP 11.9 mmol/L (8-16); CALCIUM 10.2 mg/dL (8.5-10.1); CARBON DIOXIDE 27.5 mmol/L (21.0-32.0); POTASSIUM - SERUM 3.4 mmol/L (3.5-5.1)
[2019-05-18 08:43] VITALS: BP 157/79
[2019-05-18 12:16] VITALS: BP 167/93
[2019-05-18] MEDS ORDERED: NORVASC5 MG PO (13:30)
[2019-05-18] MEDS ORDERED: HCTZ25 MG PO (13:31)
[2019-05-18] MEDS ORDERED: BENICAR20 MG PO (13:31)
[2019-05-18] MEDS ORDERED: RESTORIL7.5 MG PO (13:32)
--- NOTE | 2019-05-18 14:23 | MORECARE ---
CASE MANAGEMENT DISCHARGE SUMMARY PATIENT: RAPHAEL AGUIRRE UNIT: [id number] ADM DATE: 05/16/19 AGE: 83 : 36 SEX: F ROOM/BED: D.8385 AUTHOR: YUMIKO,DOC PHYSICIAN: REFERRING PHYSICIAN: SIVA ACUÑA MD DATE OF SERVICE: 05/18/19 Discharge Plan Patient Name: RAPHAEL AGUIRRE Facility: [facility]:[place] : 1935 Planned Disposition: Home with Home Health Anticipated Discharge Date: 05/18/19 Discharge Date: Expected LOS: 2 Initial Reviewer: [email or web address] Initial Review Date: 05/18/2019 Generated: 05/18/19 3:23 pm DCPIA - Discharge Planning Initial Assessment Updated by [email or web address]: Arie Vergara on 05/18/19 2:22 pm * Is the patient Alert and Oriented? Yes * How many steps to enter\exit or inside your home? NONE * PCP DR. ACUÑA * Pharmacy [facility] [address] * Preadmission Environment Home with Family * ADLs Independent * Equipment Walker * Other Equipment NO MEDICAL EQUIPMENT PROVIDER PREFERENCE * List name and contact numbers for known caregivers / representatives who currently or will assist patient after discharge: CHRISTEL AGUIRRE, SPOUSE, * Verbal permission to speak to the caregivers and representatives has been obtained from the patient. N/A * Community resources currently utilized None * Please name any agencies selected above. NONE * Additional services required to return to the preadmission environment? No * Can the patient safely return to the preadmission environment? Yes * Has this patient been hospitalized within the prior 30 days at any hospital? No Coverage Notice Reviewer: [id number] Sheree Vergara Notice Issued Date-Time: 05/18/2019 13:55 Notice Type: IM Discharge Notice Notice Delivered To: Patient Relationship to Patient: Curator Herbarium Name: Delivery Method: HAND - Hand Delivered Ivet Days: Prior Verbal Notification: Recipient Understood Notice: Yes Recipient Signature: Yes Med Rec Note Co-signed by Attending: Coverage Notice Comment: Reviewer: [email or web address] Vergara Notice Issued Date-Time: 05/18/2019 13:55 Notice Type: Patient Choice Letter Notice Delivered To: Patient Relationship to Patient: Curator Herbarium Name: Delivery Method: HAND - Hand Delivered Ivet Days: Prior Verbal Notification: Recipient Understood Notice: Yes Recipient Signature: Yes Med Rec Note Co-signed by Attending: Coverage Notice Comment: NO HOME HEALTH PROVIDER PREFERENCE Patient Name: RAPHAEL AGUIRRE Page [phone] at 1423 All edits/amendments must be made on the electronic document DICTATION DATE: 05/18/191422 CONCRETE MIXER TRUCK DRIVER: ISHMAEL 05/18/19 142 RPT#: [id number] DC DATE: STATUS: ADM IN [facility] [address] [place] [address] END OF REPORT
--- NOTE | 2019-05-18 14:32 | MORECARE ---
CASE MANAGEMENT DISCHARGE SUMMARY PATIENT: RAPHAEL AGUIRRE UNIT: [id number] ADM DATE: 05/16/19 AGE: 83 : 36 SEX: F ROOM/BED: D.0262 AUTHOR: YUMIKO,DOC PHYSICIAN: REFERRING PHYSICIAN: SIVA ACUÑA MD DATE OF SERVICE: 05/18/19 Discharge Plan Patient Name: RAPHAEL AGUIRRE Facility: [facility]:[place] : 1935 Planned Disposition: Home with Home Health Anticipated Discharge Date: 05/18/19 Discharge Date: Expected LOS: 2 Initial Reviewer: [email or web address] Initial Review Date: 05/18/2019 Generated: 05/18/19 3:32 pm Comments DCP- Discharge Planning Updated by [email or web address]: Arie Vergara on 05/18/19 1:[address] Patient Name: RAPHAEL AGUIRRE Admission Status: ER Accout number: [id number] Admission Date: 05-16-2019 : 1935 Admission Diagnosis: Attending: SIVA ACUÑA Current LOS: 2 Anticipated DC Date: 05-18-2019 Planned Disposition: Home with Home Health Primary Insurance: MEDICARE A & B PLANNED EXTERNAL PROVIDER: [facility] Discharge Planning Comments: CM MET WITH PT IN ROOM TO DISCUSS DISCHARGE PLANNING AND NEEDS. PT REPORTS LIVING AT HOME INDEPENDENTLY WITH HER SPOUSE. PT HAS A WALKER THAT SHE LOANED TO HER SISTER WITH NO MEDICAL EQUIPMENT PROVIDER PREFERENCE. PT HAS NO OUTSIDE SERVICES ASSISTING IN THE HOME. CM DISCUSSED AVAILABILITY OF HOME HEALTH, REHAB SERVICES AND MEDICAL EQUIPMENT. PT WOULD LIKE HOME HEALTH DUE TO HER FREQUENT LOSS OF BALANCE AND FALLS AT HOME. PT HAS NO PREFERENCE FOR HOME HEALT PROVIDER AFTER PROVIDERS LISTING REVIEWED. CHOICE COMPLETED, PT REPORTS HER SPOUSE WILL PICK HER UP FOR DISCHARGE HOME. IMPORTANT MESSAGE FROM MEDICARE PROVIDED AND EXPLAINED. CM SPOKE TO DR. MAIN VIA PHONE WHO APPROVED HOME HEALTH ORDER. CM CALLED [facility], , SPOKE TO BASSEM AND PROVIDED REFERRAL INFORMATION, FAXED REFERRAL TO [facility] AT [phone]. VEGETABLES COOK NURSE AND PT NOTIFIED. [facility] TO ADMIT FOR HOME HEALTH TOMORROW. Medical Specialist: Arie Vergara DCPIA - Discharge Planning Initial Assessment Updated by [id number]: Arie Vergara on 05/18/19 2:22 pm * Is the patient Alert and Oriented? Yes * How many steps to enter\exit or inside your home? NONE * PCP DR. ACUÑA * Pharmacy [facility] [place] * Preadmission Environment Home with Family * ADLs Independent * Equipment Walker * Other Equipment NO MEDICAL EQUIPMENT PROVIDER PREFERENCE * List name and contact numbers for known caregivers / representatives who currently or will assist patient after discharge: CHRISTEL AGUIRRE, SPOUSE, * Verbal permission to speak to the caregivers and representatives has been obtained from the patient. N/A * Community resources currently utilized None * Please name any agencies selected above. NONE * Additional services required to return to the preadmission environment? No * Can the patient safely return to the preadmission environment? Yes * Has this patient been hospitalized within the prior 30 days at any hospital? No External Providers External Provider: [facility] Next Contact Date: 05/18/2019 Service Request Date: Service Type: Resolution: Reviewer: Comments: Coverage Notice Reviewer: [id number] Sheree Vergara Notice Issued Date-Time: 05/18/2019 13:55 Notice Type: IM Discharge Notice Notice Delivered To: Patient Relationship to Patient: Fitness Attendant Name: Delivery Method: HAND - Hand Delivered Ivet Days: Prior Verbal Notification: Recipient Understood Notice: Yes Recipient Signature: Yes Med Rec Note Co-signed by Attending: Coverage Notice Comment: Reviewer: [email or web address] Sheree Vergara Notice Issued Date-Time: 05/18/2019 13:55 Notice Type: Patient Choice Letter Notice Delivered To: Patient Relationship to Patient: Fitness Attendant Name: Delivery Method: HAND - Hand Delivered Ivet Days: Prior Verbal Notification: Recipient Understood Notice: Yes Recipient Signature: Yes Med Rec Note Co-signed by Attending: Coverage Notice Comment: NO HOME HEALTH PROVIDER PREFERENCE Last DP export: 05/18/19 1:23 pm Patient Name: LISSETT AGUIRRENIE Page [phone] at 1432 All edits/amendments must be made on the electronic document DICTATION DATE: 05/18/19 1432 HEAD CONCIERGE: ISHMAEL 05/18/19 1432 RPT#: [id number] DC DATE: STATUS: ADM IN [facility] [address] [place] [address] END OF REPORT
--- NOTE | 2019-05-18 16:38 | NUR ---
PT'S DISCHARGE INSTRUCTIONS REVIEWED AND SIGNED. DRIVING HOME. IV AND TELEMETRY REMOVED.
--- NOTE | 2019-05-19 10:14 | MORECARE ---
CASE MANAGEMENT DISCHARGE SUMMARY PATIENT: RAPHAEL AGUIRRE UNIT: [id number] ADM DATE: 05/16/19 AGE: 83 : 36 SEX: F ROOM/BED: D.4310 AUTHOR: YUMIKO,DOC PHYSICIAN: REFERRING PHYSICIAN: SIVA ACUÑA MD DATE OF SERVICE: 05/19/19 Discharge Plan Patient Name: RAPHAEL AGUIRRE Facility: [facility]:[place] : 1935 Planned Disposition: Home with Home Health Anticipated Discharge Date: 05/18/19 Discharge Date: 05/18/2019 Expected LOS: 2 Initial Reviewer: [email or web address] Initial Review Date: 05/18/2019 Generated: 05/19/19 11:14 am Comments DCP- Discharge Planning Updated by [id number]: Arie Vergara on 05/18/19 1:[address] Patient Name: RAPHAEL AGUIRRE Admission Status: ER Accout number: [id number] Admission Date: 05-16-2019 : 1935 Admission Diagnosis: Attending: SIVA ACUÑA Current LOS: 2 Anticipated DC Date: 05-18-2019 Planned Disposition: Home with Home Health Primary Insurance: MEDICARE A & B PLANNED EXTERNAL PROVIDER: [facility] Discharge Planning Comments: CM MET WITH PT IN ROOM TO DISCUSS DISCHARGE PLANNING AND NEEDS. PT REPORTS LIVING AT HOME INDEPENDENTLY WITH HER SPOUSE. PT HAS A WALKER THAT SHE LOANED TO HER SISTER WITH NO MEDICAL EQUIPMENT PROVIDER PREFERENCE. PT HAS NO OUTSIDE SERVICES ASSISTING IN THE HOME. CM DISCUSSED AVAILABILITY OF HOME HEALTH, REHAB SERVICES AND MEDICAL EQUIPMENT. PT WOULD LIKE HOME HEALTH DUE TO HER FREQUENT LOSS OF BALANCE AND FALLS AT HOME. PT HAS NO PREFERENCE FOR HOME HEALT PROVIDER AFTER PROVIDERS LISTING REVIEWED. CHOICE COMPLETED, PT REPORTS HER SPOUSE WILL PICK HER UP FOR DISCHARGE HOME. IMPORTANT MESSAGE FROM MEDICARE PROVIDED AND EXPLAINED. CM SPOKE TO DR. MAIN VIA PHONE WHO APPROVED HOME HEALTH ORDER. CM CALLED [facility], , SPOKE TO BASSEM AND PROVIDED REFERRAL INFORMATION, FAXED REFERRAL TO [facility] AT [phone]. SHOE STITCHER ODD NURSE AND PT NOTIFIED. [facility] TO ADMIT FOR HOME HEALTH TOMORROW. Apprentice Pattern Maker: Arie Vergara DCPIA - Discharge Planning Initial Assessment Updated by [id number]: Arie Vergara on 05/18/19 2:22 pm * Is the patient Alert and Oriented? Yes * How many steps to enter\exit or inside your home? NONE * PCP DR. ACUÑA * Pharmacy [facility] [place] * Preadmission Environment Home with Family * ADLs Independent * Equipment Walker * Other Equipment NO MEDICAL EQUIPMENT PROVIDER PREFERENCE * List name and contact numbers for known caregivers / representatives who currently or will assist patient after discharge: CHRISTEL AGUIRRE, SPOUSE, * Verbal permission to speak to the caregivers and representatives has been obtained from the patient. N/A * Community resources currently utilized None * Please name any agencies selected above. NONE * Additional services required to return to the preadmission environment? No * Can the patient safely return to the preadmission environment? Yes * Has this patient been hospitalized within the prior 30 days at any hospital? No Coverage Notice Reviewer: [id number] Sheree Vergara Notice Issued Date-Time: 05/18/2019 13:55 Notice Type: IM Discharge Notice Notice Delivered To: Patient Relationship to Patient: Cook [place]chilada Name: Delivery Method: HAND - Hand Delivered Ivet Days: Prior Verbal Notification: Recipient Understood Notice: Yes Recipient Signature: Yes Med Rec Note Co-signed by Attending: Coverage Notice Comment: Reviewer: [email or web address] Sheree Vergara Notice Issued Date-Time: 05/18/2019 13:55 Notice Type: Patient Choice Letter Notice Delivered To: Patient Relationship to Patient: Cook [place]chilada Name: Delivery Method: HAND - Hand Delivered Ivet Days: Prior Verbal Notification: Recipient Understood Notice: Yes Recipient Signature: Yes Med Rec Note Co-signed by Attending: Coverage Notice Comment: NO HOME HEALTH PROVIDER PREFERENCE Last DP export: 05/18/19 1:32 pm Patient Name: RAPHAEL AGUIRRE Page [phone] at 1014 All edits/amendments must be made on the electronic document DICTATION DATE: 05/19/19 1014 WRAPPER STITCHER: ISHMAEL 05/19/19 1014 RPT#: [id number] DC DATE:05/18/19 STATUS: DIS IN [facility] [address] [place] [address] END OF REPORT
--- NOTE | 2019-05-20 08:19 | CN ---
PATIENT NAME:RAPHAEL AGUIRRE MEDICAL RECORD: [id number] : [birth year] LOCATION:D. D.2135 ADMIT DATE: 05/16/19 ACCOUNT: [id number] CONSULTING PHYSICIAN: RAJWINDER MONAE MD REFERRING PHYSICIAN: SIVA ACUÑA MD DATE OF CONSULTATION: 05/17/2019 HISTORY OF PRESENT ILLNESS: An 83-year-old female with known history of coronary artery disease, has a history of sick sinus syndrome with atrial fibrillation, controlled on sotalol, admitted with hypertension urgency including mental status changes, is improved. Currently, started on Cardene drip as well as oral amlodipine, noted to have bradycardia, sinus mechanism. We are asked to see her concerning her cardiovascular status. PAST MEDICAL HISTORY: Includes: 1. History of hypertension. 2. Hyperlipidemia. 3. Paroxysmal atrial fibrillation with sick sinus syndrome. 4. Gastroesophageal reflux disease. ALLERGIES: TO DILAUDID. MEDICATIONS: Include Protonix 40 mg p.o. daily, Lexapro 10 mg p.o. daily, aspirin 81 every day, sotalol 120 b.i.d., metoprolol 50 b.i.d., lisinopril 20/25 one p.o. every day. SOCIAL HISTORY: Nonsmoker, nondrinker. Retired as a nurse. Easily takes care of all her ADLs. REVIEW OF SYSTEMS: The patient reports easy bruising but reports no swollen glands. The patient reports no fever, no night sweats, no significant weight gain, no significant weight loss. No significant exercise tolerance. The patient reports no dry eyes, no irritation, no vision change. Patient reports no difficulty hearing and no ear pain. Patient reports no frequent nose bleeds or nose and sinus problems. Patient reports on arm pain on exertion. No shortness of breath while lying down. No history of heart murmur. Patient reports no cough, no wheezing or coughing up blood. Patient reports no abdominal pain, no vomiting. Normal appetite. No diarrhea and not vomiting blood. No nausea and no constipation. Patient reports no incontinence. No difficulty urinating. No hematuria. No increased frequency. Patient reports no muscle aches. No weakness, no arthralgias, no back pain. No swelling of the extremities. Patient reports no abnormal mole, no jaundice, no rashes. Reports no loss of consciousness. No weakness and no numbness. No seizures, dizziness, or headaches. The patient reports no depression, no sleep disturbance, feeling safe in a relationship and no alcohol abuse. Patient reports on fatigue. Reports no runny nose or sinus pressure. No itching, no hives, and no frequent sneezing. PHYSICAL EXAMINATION: GENERAL: Pleasant female in no apparent acute distress, appears younger than stated age. VITAL SIGNS: Blood pressure 150/78, pulse 57 and regular. HEENT: Normocephalic, atraumatic. NECK: No bruits are noted. HEART: Regular, bradycardic. A II/ systolic ejection murmur. CONSULT REPORT [id number] RAPHAEL AGUIRRE LUNGS: Good air excursion. ABDOMEN: Soft, nontender. EXTREMITIES: Pulses are well preserved, 2+. Trace edema. IMPRESSION: Bradycardia. Agree with holding beta blockade and sotalol for now. Can move out to the floor from my standpoint. We will valve reevaluate antiarrhythmics, etc. based on clinical course. TRANSINT:[id number] Voice Confirmation ID: [id number] DOCUMENT ID: [id number] RAJWINDER MONAE MD at 0819 CC: [id number] DICTATION DATE: 05/17/19 1058 TAILINGS WORKER: 05/17/198 DIS IN 05/18/19 [facility] [address] [place] [address]
== END 2019-05-18 16:40 | disposition home health service (06) | DRG 305 ==
LOC: D.ER 13:45 → D.M2 16:35 → D.ICU 16:35 → D.M2 05-17 13:32
PROVIDERS: Emergency Medicine; Family Medicine; ADMIT Family Medicine; ATTEND Family Medicine
DX: I16.0 Hypertensive urgency (principal); I25.10 Atherosclerotic heart disease of native coronary artery without angina pectoris; I34.0 Nonrheumatic mitral (valve) insufficiency; I48.0 Paroxysmal atrial fibrillation; E78.5 Hyperlipidemia, unspecified; K21.9 Gastro-esophageal reflux disease without esophagitis; K59.00 Constipation, unspecified; I49.1 Atrial premature depolarization